=== PATIENT | male | born 1990 | race African-American/Black ===

== ENCOUNTER 2017-07-08 18:28 | Emergency (ER) | payer SELFPAY ==
[~2017-07-08] VITALS: Ht 172.7 cm; Wt 122.5 kg
[2017-07-08 22:00] VITALS: BP 130/79
== END 2017-07-08 22:00 | disposition home or self-care (01) ==
LOC: ER 18:28
DX: K02.9 Dental caries, unspecified (principal); K04.7 Periapical abscess without sinus